=== PATIENT | female | born 2000 | race Hispanic/Latino ===

== ENCOUNTER 2022-05-07 19:07 | Emergency (ER) | payer OTHER ==
[~2022-05-07] VITALS: Ht 167.6 cm; Wt 65.9 kg
[2022-05-07 19:31] VITALS: BP 120/95
[2022-05-07 20:00] VITALS: BP 137/90
[2022-05-07 20:31] VITALS: BP 130/79
[2022-05-07] MEDS ORDERED: ROBITUSSIN AC10 ML PO (20:56)
[2022-05-07] MEDS ORDERED: CEPHALEXIN500 MG PO (20:56)
[2022-05-07 21:00] VITALS: BP 138/76
[2022-05-07 21:11] VITALS: BP 138/76
== END 2022-05-07 21:11 | disposition home or self-care (01) ==
LOC: ED 19:07
DX: J06.9 Acute upper respiratory infection, unspecified (principal)